=== PATIENT | male | born 1960 | race Caucasian/White ===

== ENCOUNTER 2022-10-30 12:49 | Emergency (ER) | payer SELFPAY ==
--- NOTE | 2022-10-30 13:49 | ED.GENADULT ---
HPI - General Adult General Chief complaint: Extremity Injury, Upper Stated complaint: laceration rt hand Time Seen by Provider: 10/30/22 13:49 Source: patient Mode of arrival: ambulatory Limitations: no limitations History of Present Illness HPI narrative: 62-year-old male patient presents to the [facility] with complaints of a laceration to the right thumb. Patient states that he was at home working with some tools and 1 slipped out of his hand and he went to go catch it and lacerated him. Patient unaware of when his last tetanus shot was. Patient denies any numbness or tingling to the thumb and denies any issues with range of motion to the thumb. Patient also states that when he went to go and grabbed the tool he also superficially lacerated the tip of the right ring finger. Related Data Allergies Allergy/AdvReac Type Severity Reaction Status Date / Time No Known Allergies Allergy Verified 10/30/22 14:18 Review of Systems Review of Systems: CONSTITUTIONAL: Denies fever, chills, or sweats. EYES: Denies visual changes, redness, or discharge. ENT: Denies rhinorrhea, congestion, sore throat, or otalgia. CARDIOVASCULAR: Denies chest pain, palpitations, or edema. RESPIRATORY: Denies cough or dyspnea. GASTROINTESTINAL: Denies abdominal pain, nausea, vomiting, or diarrhea. GENITOURINARY: Denies dysuria or hematuria. SKIN: Denies rash or itching. Positive laceration to right thumb and superficial laceration to the tip of the right ring finger MUSCULOSKELETAL: Denies back pain, joint pain, or myalgia. NEUROLOGIC: Denies headache, numbness, or weakness. PSYCHIATRIC: Denies anxiety or depression. PMFSH Family History Family History (Updated 05/21/16 @ 23:19 by DOCTOR UNKNOWN) Father Hypertension Family history of diabetes mellitus in first degree relative Mother Hypertension Asthma Other Cerebrovascular accident Diabetes mellitus Social History Social History Alcohol intake: current Exam Narrative: GENERAL: Well-appearing, well-nourished, and in no acute distress. HEAD: Normocephalic, atraumatic. EYES: PERRLA and EOMI. ENT: Nares clear, no rhinorrhea or epistaxis. Mucous membranes moist. NECK: Supple. No lymphadenopathy CHEST: Clear to auscultation. No respiratory distress. HEART: Regular rate and rhythm. No murmur heard. Normal peripheral pulses. ABDOMEN: Soft, nontender, nondistended, normal active bowel sounds. EXTREMITIES: Normal range of motion. No edema. SKIN: patient has approximately that is 3.5 cm laceration noted to the base of the right thumb with fat exposed. Patient does have a superficial laceration to the tip of the right ring finger measuring approximately 1 cm no gaping wounds no fat exposed. The range of motion to the thumb no evidence of tendon injury noted. NEURO: No focal deficits. Alert and oriented x3. Course Course Level of Care: Express Care Visit Vital Signs Vital signs: Vital Signs Temperature 36.9 C 10/30/22 13:54 Pulse Rate 78 10/30/22 13:54 Respiratory Rate 18 10/30/22 13:54 Blood Pressure 153/75 H 10/30/22 13:54 Pulse Oximetry 98 10/30/22 13:54 Oxygen Delivery Room Air 10/30/22 13:54 Temperature 36.9 C 10/30/22 13:54 Pulse Rate 78 10/30/22 13:54 Respiratory Rate 18 10/30/22 13:54 Blood Pressure 153/75 H 10/30/22 13:54 Pulse Oximetry 98 10/30/22 13:54 Oxygen Delivery Room Air 10/30/22 13:54 Vital signs reviewed. Procedures Laceration Laceration 1: Date: 10/30/22 Time: 14:20 Site: hand (base of thumb) Side (If applicable): right Size (cm): 3 Description: linear Depth: simple, single layer Local Anesthetic: lidocaine 1% Amount of anesthesia used (mL): 6 Pre-repair: wound explored and irrigated ====== Skin Level ====== Skin layer closed with: prolene Size (cm): 5-0 Number of sutures: 6 Technique: simple, interru
[2022-10-30 13:54] VITALS: BP 153/75; PULSE 78; RESP 18; TEMP 36.9; O2SAT 98
[2022-10-30] MEDS: TETANUS,DIPHTHERIA,AC PERTUSSIS ADULT (0.5 ML) BOOSTRIX IM (14:38)
== END 2022-10-30 14:46 | disposition home or self-care (01) ==
PROVIDERS: Emergency Provider Nurse Practitioner Family; PCP Family Medicine Adolescent Medicine
DX: S61.011A Laceration without foreign body of right thumb without damage to nail, initial encounter (principal); S61.214A Laceration without foreign body of right ring finger without damage to nail, initial encounter; S61.212A Laceration without foreign body of right middle finger without damage to nail, initial encounter; W27.8XXA Contact with other nonpowered hand tool, initial encounter; Z23 Encounter for immunization
CPT/HCPCS: 12002; 90471; 90715; 99213; G0463